=== PATIENT | female | born 1955 | race Hispanic/Latino ===

== ENCOUNTER 2020-06-26 15:02 | Emergency (ER) | payer BC ==
[~2020-06-26] VITALS: Ht 152.4 cm; Wt 72.6 kg
[2020-06-26] MEDS ORDERED: ULTRAM 50MG50 MG PO (15:59)
== END 2020-06-26 16:31 | disposition home or self-care (01) ==
LOC: FSED 15:18
DX: S52.502A Unspecified fracture of the lower end of left radius, initial encounter for closed fracture (principal); W01.0XXA Fall on same level from slipping, tripping and stumbling without subsequent striking against object, initial encounter; Y93.01 Activity, walking, marching and hiking; Y92.008 Other place in unspecified non-institutional (private) residence as the place of occurrence of the external cause; I10 Essential (primary) hypertension; E11.9 Type 2 diabetes mellitus without complications; E78.5 Hyperlipidemia, unspecified
CPT/HCPCS: 99283